=== PATIENT | female | born 1980 | race American Indian/Alaskan Native ===

== ENCOUNTER 2017-09-29 09:46 | Outpatient (CLI) | payer OTHER ==
[2017-09-29] MEDS ORDERED: PROVENTIL IH ONE (10:23)
== END 2017-09-29 09:47 | disposition home or self-care (01) ==
LOC: PF 09:46
PROVIDERS: ATTEND Internal Medicine
DX: J44.9 Chronic obstructive pulmonary disease, unspecified (principal); I50.9 Heart failure, unspecified; J98.4 Other disorders of lung; F32.9 Major depressive disorder, single episode, unspecified; G47.00 Insomnia, unspecified; R41.3 Other amnesia
CPT/HCPCS: 94060; 94640